=== PATIENT | female | born 1970 | race Caucasian/White ===

== ENCOUNTER 2016-10-27 23:23 | Emergency (ER) | payer MEDICAID, OTHER ==
[2016-10-28] MEDS ORDERED: IBUPROFEN 600 MG TABLET ONE (02:16)
[2016-10-28] MEDS ORDERED: ACETAMINOPHEN 325 MG TABLET ONE (02:17)
--- NOTE | 2016-10-28 06:35 | RAD ---
SHOULDER-LEFT 2 OR MORE VIEWS COMPARISON: None HISTORY: Fall today with left shoulder pain and decreased range of motion. FINDINGS: Views: Left shoulder AP and scapula Y Bones: Normal mineralization. No fracture. Joints: No dislocation or subluxation of the glenohumeral joint. Normal width of the acromion clavicular joint and the left sternoclavicular joint. Soft tissues: Similar calcification posterior to the right ear tuberosity of the humerus. 5 surgical clips in the left supraclavicular region. IMPRESSION: 1. No acute finding. No fracture or dislocation. 2. 7 mm focus of calcific tendinitis of the left rotator cuff. 3. Surgical clips in the left supraclavicular region.
--- NOTE | 2016-10-28 06:41 | RAD ---
SHOULDER-LEFT 2 OR MORE VIEWS COMPARISON: Left shoulder complete, 10/27/2016, 23:56 HISTORY: Reduction of shoulder dislocation. FINDINGS: Views: Left shoulder AP and scapula Y Bones: Normal mineralization. No fracture. Joints: Normal alignment of the glenohumeral joint and the acromioclavicular joint. Soft tissues: Posterior rotator cuff calcification. Surgical clips in the left supraclavicular region. IMPRESSION: 1. Normal alignment of the left humeral joint. No fracture or dislocation. 2. Calcified tendinopathy of the rotator cuff.
== END 2016-10-28 03:57 | disposition home or self-care (01) ==
LOC: ED 23:23
DX: S43.005A Unspecified dislocation of left shoulder joint, initial encounter (principal); F17.210 Nicotine dependence, cigarettes, uncomplicated; Z86.73 Personal history of transient ischemic attack (TIA), and cerebral infarction without residual deficits; W10.9XXA Fall (on) (from) unspecified stairs and steps, initial encounter; Y92.9 Unspecified place or not applicable; Y99.9 Unspecified external cause status
CPT/HCPCS: 73030 ×2; 99284; 99283; A9270 ×2